=== PATIENT | male | born 1970 | race Caucasian/White ===

== ENCOUNTER → 2023-09-08 09:38 | Outpatient (CLI) | payer OTHER, SELFPAY ==
--- NOTE | 2023-09-08 09:46 | DI.RAD.S_ITS ---
PROCEDURE: XR THORACIC SPINE 2V INDICATIONS: BACK PAIN TECHNIQUE: 3 views of the thoracic spine were acquired. COMPARISON: None. FINDINGS: Bones: Mild levocurvature of the lower thoracic spine. Dextroscoliosis of the lumbar spine, incompletely visualized. Cervical thoracic junction is not well visualized. Visualized vertebral body heights are well maintained.Mild, multilevel degenerative disc disease of the thoracic spine. Plate and screw fixation of the right clavicle, incompletely evaluated. IMPRESSION: Degenerative changes as described above. Dictated by: Teresa Sanchez M.D. on 09/08/2023 at 13:46 Approved by: Teresa Sanchez M.D. on 09/08/2023 at 13:48
--- NOTE | 2023-09-08 09:46 | DI.RAD.S_ITS ---
PROCEDURE: XR CERVICAL SPINE 2V OR 3V INDICATIONS: NECK PAIN TECHNIQUE: 3 view(s) of the cervical spine were acquired. COMPARISON: None. FINDINGS: Bones: Straightening of the cervical spine. Mild anterolisthesis of C4 on C5. Mild retrolisthesis of C6 on C7. Vertebral body heights are well-maintained. Mild, multilevel degenerative disc disease of the cervical spine. No significant cervical facet arthropathy. Lateral masses C1 to are well-aligned. Plate and screw fixation of the right clavicle, partially visualized. Soft tissues: No prevertebral soft tissue swelling. IMPRESSION: Degenerative changes as described above. Dictated by: Teresa Sanchez M.D. on 09/08/2023 at 13:48 Approved by: Teresa Sanchez M.D. on 09/08/2023 at 13:51
== END ==
PROVIDERS: Referring Provider Internal Medicine Cardiovascular Disease; Visit Provider Internal Medicine Cardiovascular Disease
DX: M51.34 Other intervertebral disc degeneration, thoracic region (principal); M50.30 Other cervical disc degeneration, unspecified cervical region; M43.12 Spondylolisthesis, cervical region; M41.9 Scoliosis, unspecified
CPT/HCPCS: 72040; 72070